=== PATIENT | female | born 1935 | race Caucasian/White ===

== ENCOUNTER → 2016-08-15 12:58 | Outpatient (CLI) | payer MEDICARE ==
[2009-06-11 11:48] VITALS: BMI 27.4
== END | disposition home or self-care (01) ==
LOC: D.US 12:58
DX: I65.23 Occlusion and stenosis of bilateral carotid arteries (principal)

== ENCOUNTER → 2017-11-13 08:35 | Outpatient (CLI) | payer MEDICARE ==
[2009-06-11 11:48] VITALS: BMI 27.4
== END | disposition home or self-care (01) ==
LOC: D.US 08:35
DX: I65.23 Occlusion and stenosis of bilateral carotid arteries (principal)

== ENCOUNTER → 2018-11-12 08:43 | Outpatient (CLI) | payer MEDICARE ==
[2009-06-11 11:48] VITALS: BMI 27.4
== END | disposition home or self-care (01) ==
LOC: D.US 08:43
PROVIDERS: ATTEND Internal Medicine Cardiovascular Disease
DX: I65.23 Occlusion and stenosis of bilateral carotid arteries (principal)

== ENCOUNTER → 2019-11-19 12:00 | Outpatient (CLI) | payer MEDICARE ==
[2009-06-11 11:48] VITALS: BMI 27.4
== END | disposition home or self-care (01) ==
LOC: D.US 12:00
PROVIDERS: ATTEND Internal Medicine Cardiovascular Disease
DX: I65.22 Occlusion and stenosis of left carotid artery (principal)